=== PATIENT | male | born 1955 | race Caucasian/White ===

== ENCOUNTER 2018-04-24 06:41 | Day surgery (SDC) | payer OTHER ==
[2018-04-24] MEDS ORDERED: ceFAZolin IV 1 gm in Dextrose 1 GM/50 ML BAG IVPB ONE (06:46)
[2018-04-24] MEDS ORDERED: Lidocaine/Epinephrine 1% 1:100000 10 ML IJ ONE (06:46)
[2018-04-24] MEDS ORDERED: EPINEPHrine 1:1000 Nasal Sol(30mL) ONE (06:46)
[2018-04-24] MEDS ORDERED: Acetaminophen-Codeine 300/30 mg Tab PO PRN (08:17)
[2018-04-24] MEDS ORDERED: Dextrose 5%/0.45% NS 1,000 ML IV SCH (08:30)
[2018-04-24] MEDS ORDERED: Propofol 10 mg/ml Inj (20 ML) ONE (08:58)
[2018-04-24] MEDS ORDERED: Midazolam 2 MG/2 ML VIAL ONE (08:59)
[2018-04-24] MEDS ORDERED: Lactated Ringer's 1,000 ML IV ONE (09:35)
[2018-04-24] MEDS ORDERED: Neostigmine Methylsulfate 3mg/3ml Syringe IV ONE (11:07)
[2018-04-24] MEDS ORDERED: HYDROmorphone 0.5 mg/0.5 ml ISec IVP PRN (11:14)
[2018-04-24 11:28] VITALS: O2SAT 100
[2018-04-24] MEDS ORDERED: Dextrose 5%/0.45% NS 1,000 ML IV ONE (12:00)
[2018-04-24 13:32] VITALS: BP 120/70; PULSE 94; RESP 20; TEMP 97.8
--- NOTE | 2018-04-24 21:00 | OP ---
Copied To: Gómez Rivas MD Attending MD: Gómez Rivas MD PROCEDURE DATE: 04/24/2018 PREOPERATIVE DIAGNOSES: Deviated septum, enlarged turbinates, sinusitis. POSTOPERATIVE DIAGNOSES: Deviated septum, enlarged turbinates, sinusitis. PROCEDURE: Endoscopic bilateral maxillary antrostomy, endoscopic bilateral ethmoidectomy, endoscopic bilateral inferior turbinate reduction, septoplasty. SIGNIFICANT FINDINGS: Deviated septum, enlarged inferior turbinates. Ethmoid sinuses noted to have mucoperiosteal thickening, maxillary antrum stenosed on both sides. DESCRIPTION OF PROCEDURE: The patient was brought into room, placed in supine position. Anesthesia was initiated through an ET tube. Adrenaline-soaked pledgets were inserted into the nasal cavity, remained there for at least 5 minutes and removed. The patient was draped in usual manner. Navigation was set up and used throughout the case in order to ensure that the skull base and orbit were not entered. The septum was injected on both sides with lidocaine with epinephrine. A anushka-transfixion incision was made on the left and mucoperichondrial flap was raised. A vertical incision was made in the cartilage leaving a 1.5 cm anterior and superior strut and the mucoperichondrial flap was raised on the other side. Deviated portion of the bone and cartilage were removed using forceps and chisel. The anterior septum was noted to be reflected and scored in order to straighten it up. A suture was used to suture the two flaps together and close the anushka-transfixion incision. Attention was turned to the inferior turbinates. A 0-degree scope was inserted into cavity. The inferior turbinates were noted to be enlarged, and they were reduced first on the left and then on the right, going from inferior to superior, anterior to posterior direction, first on the left, then on the right. Bleeding was controlled using suction cautery. Next, the middle turbinate on both sides were injected with lidocaine with epinephrine. Attention was turned to the left. The middle turbinate was medialized. The uncinate process was medialized using a [place] elevator and removed using forceps. The debrider was used to enter the ethmoid bulla inferomedially, going posterior to the basal lamella, anterior and superiorly until the ethmoid bulla was removed. The basal lamella was entered. Posterior ethmoid cells were entered and opened. Skull base was identified and followed anteriorly all the way to the area of the anterior ethmoid air cells. A curved suction was used to locate the maxillary antrum which was noted to be stenosed and opened using forceps. Attention was turned to the side. The middle turbinate was medialized. The uncinate process was medialized using a [place] elevator and removed using forceps. A debrider was used to enter the ethmoid bulla inferomedially going posterior to the basal lamella, then anterior and superiorly until the ethmoid bulla was removed. The basal lamella was entered. Posterior ethmoid cells were entered and opened. Skull base was identified and followed anteriorly all the way to the area of the anterior ethmoid air cells. Curved suction hooked up to navigation was used to locate the maxillary antrum which was noted to be stenosed and opened using forceps. Bleeding was controlled on both sides using adrenaline-soaked pledgets and suction cautery. Stents were placed. The patient was taken off anesthesia and taken to recovery room in stable manner. Gómez Rivas MD
== END 2018-04-24 13:45 | disposition home or self-care (01) ==
LOC: C.SDS 06:41
PROVIDERS: ATTEND Otolaryngology
DX: J34.2 Deviated nasal septum (principal); J34.3 Hypertrophy of nasal turbinates; J32.2 Chronic ethmoidal sinusitis; J32.0 Chronic maxillary sinusitis
CPT/HCPCS: 30130; 30520; 31020; 31201; 31255; 88304; J0690; J2250; J2704; J2710; J3010; J7042; J7120